=== PATIENT | female | born 1990 | race Hispanic/Latino ===

== ENCOUNTER 2017-01-20 13:43 | Emergency (ER) | payer MEDICAID, OTHER ==
[2017-01-20] MEDS ORDERED: Ammonia 2% Inhalant ONE (14:08)
[2017-01-20 15:18] VITALS: BMI 23.8
[2017-01-20] MEDS ORDERED: Lactated Ringer's 1,000 ML IV SCH (15:30)
[2017-01-20 16:56] LABS: RBC URINE 2 /hpf (0-3); URINE BILIRUBIN NEGATIVE (NEGATIVE); URINE BLOOD LARGE (NEGATIVE); URINE COLOR STRAW (YELLOW); URINE GLUCOSE (UA) NEG (Normal); URINE KETONE 20 mg/dL (NEGATIVE); URINE LEUKOCYTE ESTERASE NEG Leu/uL (Negative); URINE PROTEIN NEGATIVE (NEGATIVE); URINE UROBILINOGEN 0.2-1.0 mg/dL (0.2-1.0); WBC URINE 2 /hpf (0-5)
== END 2017-01-20 17:40 | disposition home or self-care (01) ==
LOC: MERGE 13:43 → H.EROB2 13:43
DX: O26.92 Pregnancy related conditions, unspecified, second trimester (principal); O76 Abnormality in fetal heart rate and rhythm complicating labor and delivery
CPT/HCPCS: 81003; 96360; 99283; J7120

== ENCOUNTER 2018-02-03 10:47 | Emergency (ER) | payer MEDICAID ==
[2018-02-03 10:47] VITALS: BMI 23.8
[2018-02-03 10:55] VITALS: O2SAT 100
--- NOTE | 2018-02-03 11:55 | ED PDOC ---
- ECG O2 Sat by Pulse Oximetry: 100 Disposition - Disposition
--- NOTE | 2018-02-03 12:24 | CARD ---
APPROVED REPORT Date of service: 02/03/2018 EKG Measurement Heart [id number] <Conclusion> Normal sinus rhythm Prolonged QT St changes sugestive of myocardial ischmia Abnormal ECG
--- NOTE | 2018-02-03 12:56 | ED PDOC ---
HPI: Psych/Substance Abuse Time Seen by Provider: 02/03/18 11:00 Chief Complaint (Nursing): Anxiety Chief Complaint (Provider): Anxiety History Per: Patient History/Exam Limitations: no limitations Onset/Duration Of Symptoms: Days (x2.5 weeks) Current Symptoms Are (Timing): Intermittent Episodes Additional Complaint(s): 27 y/o female with a PMHx of anxiety presenting for evaluation of anxiety. Patient states for the past 2.5 weeks shes had intermittent episodes of palpitations, chest pain, numbness to fingertips, heavy breathing, and feeling anxious. She states she initially feels anxious and the other symptoms follow. She reports on 01/17 she had pelvic pain, presented to the ED, and was diagnosed with a threatened miscarriage which worsened her panic attacks. At that time, according to paperwork, patients beta was 438 and US was inconclusive. She says she then followed up 5 days later at [facility] where they did another repeat beta, but she is uncertain of the results. According to discharge instructions her 01/22 beta was 3500. She reports no pelvic pain or vaginal bleeding at this time, but comes in today due to another anxiety attack. Patient admits to feeling anxious because she lost a baby in 03/28 and the term threatened miscarriage scared her. She denies vaginal bleeding, SI, HI, hallucinations, abdominal pain, pelvic pain, and weakness. Patient is currently without symptoms. Of note, patient denies ever taking medications for anxiety, but was diagnosed with it as a child. Patient also states she has a scheduled appointment with an OBGYN, but does not remember the name. Past Medical History Reviewed: Historical Data, Nursing Documentation, Vital Signs Vital Signs: Last Vital Signs Temp 98.1 F 02/03/18 10:54 Pulse 97 H 02/03/18 10:54 Resp 16 02/03/18 10:54 BP 128/77 02/03/18 10:54 Pulse Ox 100 02/03/18 10:54 - Medical History PMH: Anxiety Denies: Chronic Kidney Disease - Surgical History Surgical History: No Surg Hx - Family History Family History: States: No Known Family Hx - Immunization History Hx Tetanus Toxoid Vaccination: Yes Hx Influenza Vaccination: Yes Hx Pneumococcal Vaccination: Yes - Home Medications Home Medications: Ambulatory Orders Medication Instructions Recorded No Known Home Med [No Known Home 12/29/14 Med] - Allergies Allergies/Adverse Reactions: Allergies Allergy/AdvReac Type Severity Reaction Status Date / Time tr Allergy Mild RASH Uncoded 01/17/18 23:28 Review of Systems ROS Statement: Except As Marked, All Systems Reviewed And Found Negative Cardiovascular: Positive for: Chest Pain, Palpitations Respiratory: Positive for: Other (heavy breathing) Gastrointestinal: Negative for: Abdominal Pain Genitourinary Female: Negative for: Pelvic Pain Neurological: Positive for: Numbness. Negative for: Weakness Psych: Positive for: Anxiety. Negative for: Suicidal ideation (or HI) Physical Exam - Reviewed Nursing Documentation Reviewed: Yes Vital Signs Reviewed: Yes - Physical Exam Appears: Positive for: Well, Non-toxic, No Acute Distress (speaking in full sentences) Skin: Positive for: Normal Color, Warm. Negative for: Rash Eye Exam: Positive for: Normal appearance Cardiovascular/Chest: Positive for: Regular Rate, Rhythm. Negative for: Murmur Respiratory: Positive for: Normal Breath Sounds. Negative for: Respiratory Distress Gastrointestinal/Abdominal: Positive for: Normal Exam, Soft. Negative for: Tenderness Back: Positive for: Normal Inspection. Negative for: L CVA Tenderness, R CVA Tenderness, Vertebral Tenderness Extremity: Positive for: Normal ROM. Negative for: Calf Tenderness (b/l) Neurologic/Psych: Positive for: Alert, Oriented (x3), Mood/Affect (calm, cooperative, friendly). Negative for: Aphasia, Facial Droop - ECG O2 Sat by Pulse Oximetry: 100 (RA) Pulse Ox Interpretation: Normal Medical Decision Making Medical Decision Makin:22 Plan: -EKG -Crisis evaluation -Reevaluation EKG: sinus rhythm at 81 bpm, no ST-T wave changes 12:41 Patient was given outpatient psych clinic information by molding utility worker. Patient is appreciative and agrees with plan and care. Reports no symptoms during entire ED stay. Advised to return to ED immediately if symptoms return. Case discussed with Dr. Garces who agrees with plan and care. ----- Scribe Attestation: Documented by Todd Bempong, acting as a scribe for Agus Kiran PA-C. Provider Scribe Attestation: All medical record entries made by the Scribe were at my direction and personally dictated by me. I have reviewed the chart and agree that the record accurately reflects my personal performance of the history, physical exam, medical decision making, and the department course for this patient. I have also personally directed, reviewed, and agree with the discharge instructions and disposition. Disposition - Clinical Impression Clinical Impression: Anxiety - Patient ED Disposition Is Patient to be Admitted: No - Disposition Referrals: [facility] [Outside] [facility] [Outside] Disposition: Routine/Home Disposition Time: 12:41 Condition: STABLE Additional Instructions: PATRICIA BLUE, thank you for letting us take care of you today. Your provider was Evin Garces MD and you were treated for ANXIETY. The emergency medical care you received today was directed at your acute symptoms. If you were prescribed any medication, please fill it and take as directed. It may take several days for your symptoms to resolve. Return to the Emergency Department if your symptoms worsen, do not improve, or if you have any other problems. Please contact your doctor or call one of the physicians/clinics you have been referred to that are listed on the Patient Visit Information form that is included in your discharge packet. Bring any paperwork you were given at discharge with you along with any medications you are taking to your follow up visit. Our treatment cannot replace ongoing medical care by a primary care provider outside of the emergency department. Thank you for allowing the [facility] team to be part of your care today. If you had an X-Ray or CT scan: A Radiologist will review the ED reading if any change in treatment is needed we will contact you. If you had a blood, urine, or wound culture: It will take several days for the results, if any change in treatment is needed we will contact you. If you had an STI test: It will take 48 hours for the results. Please call after 1 week if you have not heard back. Instructions: Anxiety, Adult (DC) Forms: [facility] (Palestinian) Print Language: ALBANIAN
[2018-02-03 12:57] VITALS: BP 118/58; PULSE 84; RESP 18; TEMP 98
== END 2018-02-03 12:55 | disposition home or self-care (01) ==
LOC: H.ER 10:47
DX: F41.9 Anxiety disorder, unspecified (principal)

== ENCOUNTER 2018-05-17 12:29 | Emergency (ER) | payer MEDICAID ==
[2018-05-17 13:20] VITALS: BMI 24.7
[2018-05-17 14:40] LABS: SQUAMOUS EPITHIAL 5 /hpf (0-5); URINE BILIRUBIN NEGATIVE (NEGATIVE); URINE BLOOD NEGATIVE (NEGATIVE); URINE CLARITY SLIGHTY-CLOUDY (Clear); URINE COLOR YELLOW (YELLOW); URINE GLUCOSE (UA) NEG (Normal); URINE PROTEIN NEGATIVE (NEGATIVE); URINE UROBILINOGEN 0.2-1.0 mg/dL (0.2-1.0)
[2018-05-17 14:54] LABS: URINE LEUKOCYTE ESTERASE TRACE Leu/uL (Negative)
[2018-05-17] MEDS ORDERED: Lactated Ringer's 1,000 ML IV STA (15:30)
[2018-05-17 15:59] LABS: BASO % 0.4 % (0.0-2.0); EOS % 0.3 % (0.0-4.0); HEMOGLOBIN 12.4 g/dL (12.0-16.0); LYMPH # 1.2 K/uL (1.0-4.3); LYMPH % 15.5 % (20.0-40.0); MEAN CELL VOLUME 95.2 fl (81.0-99.0); MEAN CORPUSCULAR HGB CONC 33.7 g/dL (33.0-37.0); MEAN PLATELET VOLUME 9.1 fl (7.2-11.7); MONO # 0.5 K/uL (0.0-0.8); MONO % 6.7 % (0.0-10.0); NEUT # 6.1 K/uL (1.8-7.0); NEUT % 77.1 % (50.0-75.0); NRBC % 0.1 % (0.0-0.0); RBC 3.87 Mil/uL (3.80-5.20); RED CELL DISTRIBUTION WIDTH 13.3 % (11.5-14.5); WHITE BLOOD COUNT 7.9 K/uL (4.8-10.8)
[2018-05-17 16:11] LABS: ALB/GLOB RATIO 1.1 (1.0-2.1); ALBUMIN 3.7 g/dL (3.5-5.0); ALT/SGPT 24 U/L (9-52); AST/SGOT 23 U/L (14-36); BLOOD UREA NITROGEN 7 mg/dl (7-17); CALCIUM 8.6 mg/dL (8.4-10.2); GFR NON-AFRICAN AMERICAN > 60
--- NOTE | 2018-05-17 16:14 | ED PDOC ---
HPI: Chest Pain Time Seen by Provider: 05/17/18 15:07 Chief Complaint (Nursing): Chest Pain Chief Complaint (Provider): Chest Pain History Per: Patient History/Exam Limitations: no limitations Onset/Duration Of Symptoms: Intermittent Episodes (since 12/2017), Worse Since (x3 days) Current Symptoms Are (Timing): Still Present Additional Complaint(s): 27 year old female, approximately 22 weeks with pmHx of anxiety, arrives to ED with a complaint of intermittent right-sided chest pain since 12/2017 but worsen in the last 3 days. Patient states symptoms feel similar to previous anxiety episodes but also believes it was initiated when she choked on food 3 days ago. She reports associated difficulty breathing, shortness of breath on exertion, upper chest rash, watery, non-bloody diarrhea, nonbloody, nonbilious vomiting, nausea, decreased PO intake and appetite. Otherwise, she denies any fever, chills, cough, recent travel, sick contacts, leg pain or swel ling. . [employer]ER: [facility] in [place]. Past Medical History Reviewed: Historical Data, Nursing Documentation, Vital Signs Vital Signs: Last Vital Signs Temp 98.0 F 05/17/18 15:13 Pulse 94 H 05/17/18 15:13 Resp 18 05/17/18 15:13 BP 104/55 L 05/17/18 15:13 Pulse Ox 100 05/17/18 15:13 - Medical History PMH: Anxiety Denies: Chronic Kidney Disease - Surgical History Surgical History: No Surg Hx - Family History Family History: States: No Known Family Hx - Social History Current smoker - smoking cessation education provided: No Ex-Smoker (has not smoked in the last 12 months): Yes Alcohol: None Drugs: Cannabis - Immunization History Hx Tetanus Toxoid Vaccination: Yes Hx Influenza Vaccination: Yes Hx Pneumococcal Vaccination: Yes - Home Medications Home Medications: Ambulatory Orders Medication Instructions Recorded Acetaminophen [Tylenol Extra 1,000 mg PO Q6 PRN #100 tablet 05/17/18 Strength] Cyclobenzaprine [Flexeril] 5 mg PO Q8 PRN #15 tab 05/17/18 Famotidine [Pepcid] 40 mg PO DAILY PRN #10 tab 05/17/18 Ondansetron ODT [Zofran ODT] 1 odt PO Q6 PRN #30 odt 05/17/18 - Allergies Allergies/Adverse Reactions: Allergies Allergy/AdvReac Type Severity Reaction Status Date / Time tr Allergy Mild RASH Uncoded 05/17/18 15:03 Wells Criteria for PE - Wells Criteria for Pulmonary Embolism Clinical Signs and Symptoms of DVT: No P.E is #1 Diagnosis, or Equally Likely: No Heart Rate >100: No Immobilization at least 3 days;Surgery previous 4 weeks: No Previous, objectively diagnosed PE or DVT: No Hemoptysis: No Malignancy w/treatment within 6 months, or palliative: No Total Score: 0 Review of Systems ROS Statement: Except As Marked, All Systems Reviewed And Found Negative Constitutional: Negative for: Fever, Chills Cardiovascular: Positive for: Chest Pain (right-sided) Respiratory: Positive for: SOB with Exertion. Negative for: Cough Gastrointestinal: Positive for: Nausea, Vomiting (NBNB), Diarrhea (NB, watery), Other (decreased PO intake and appetite) Musculoskeletal: Negative for: Leg Pain (or swelling) Skin: Positive for: Rash (upper chest) Psych: Positive for: Anxiety Physical Exam - Reviewed Nursing Documentation Reviewed: Yes Vital Signs Reviewed: Yes - Physical Exam Appears: Positive for: In Acute Distress (painful mildly) Head Exam: Positive for: ATRAUMATIC, NORMOCEPHALIC Skin: Positive for: Warm, Dry Eye Exam: Positive for: EOMI, PERRL ENT: Positive for: Pharynx Is (clear), Other (dry mucous membrane) Neck: Positive for: Painless ROM, Supple Cardiovascular/Chest: Positive for: Regular Rate, Rhythm, Other (right anterior chest wall tenderness with petechiae). Negative for: Murmur Respiratory: Positive for: Normal Breath Sounds. Negative for: Accessory Muscle Use, Rales, Rhonchi, Wheezing, Respiratory Distress Gastrointestinal/Abdominal: Positive for: Soft, Other (gravid with uterus above umbilicus). Negative for: Mass, Guarding, Rebound Pelvic Exam: Positive for: Tender Uterus Back: Positive for: Normal Inspection. Negative for: Decreased ROM Extremity: Negative for: Pedal Edema (bilateral), Calf Tenderness (bilateral) Lymphatic: Negative for: Adenopathy Neurologic/Psych: Positive for: Alert, Oriented (x3), Mood/Affect (anxious). Negative for: Motor/Sensory Deficits - Laboratory Results Result Diagrams: 05/17/18 15:54 05/17/18 15:54 - ECG ECG: Positive for: Interpreted By Nc ECG Rhythm: Positive for: Normal QRS, Normal ST Segment, Sinus Rhythm O2 Sat by Pulse Oximetry: 100 (RA) Pulse Ox Interpretation: Normal Medical Decision Making Medical Decision Making: Initial Impression: Chest pain; Anxiety Differential diagnosis includes but not limited to: anxiety, electrolyte abnormality, dehydration, thyroid disfunction. Given symptoms started 6 months ago, currently has AGE symptoms, and has no tachycardia or respiratory distress, very unlikely that this pt has pulmonary embolism. Initial Plan: * Labs * EKG * Flexeril 10mg PO * Lactated Ringers * Tylenol 975mg PO * Zofran inj 4mg IVP * US Time: 1530 --EKG: NSR at 98 BMP. Normal QRS and ST cycle. Time: 16:35 FINDINGS: UTERUS: Single live intrauterine fetus in cephalic presentation. BPD: 5.3 cm corresponding to 22 weeks and 0 day of gestational age. HC: 18.6 cm corresponding to 21 weeks and 0 days of gestational age. AC: 15.3 cm corresponding to 20 weeks and 4 days of gestational age. FL: 4.0 cm corresponding to 22 weeks and 6 days of gestational age. Heart rate: 152 bpm. age (Ultrasound estimated): 21 weeks and 4 days Corine-gestational hemorrhage: None. Date of delivery (Ultrasound estimated) : 09/23/2018 CERVIX: Measures 5.0 cm. Long and closed. No cervical abnormality seen. RIGHT OVARY: Not visualized. LEFT OVARY: Not visualized. FREE FLUID: None. OTHER FINDINGS: None. IMPRESSION: Single live intrauterine fetus in cephalic presentation with mean gestational age of 21 weeks and 4 days. The estimated date of delivery by ultrasound is 09/23/2018. The ultrasound dates correspond with the clinical dates. Please note this is a limited OB ultrasound performed on an emergent basis. Follow-up dedicated anatomic survey is recommended. Labs demonstrate ketones in UA, otherwise no clinically significant abnormalities 1730 on reeval pt feeling better, reports her hunger resolved and is eating sandwich. Stable for dc. Scribe Attestation: Documented by Lyndsay Villatoro, acting as a scribe for Evin Garces MD. Provider Scribe Attestation: All medical record entries made by the Scribe were at my direction and personally dictated by me. I have reviewed the chart and agree that the record accurately reflects my personal performance of the history, physical exam, medical decision making, and the department course for this patient. I have also personally directed, reviewed, and agree with the discharge instructions and disposition. Disposition - Clinical Impression Clinical Impression: Anxiety, Gastroenteritis Counseled Patient/Family Regarding: Studies Performed, Diagnosis, Need For Followup, Rx Given - Disposition Referrals: [facility] [Provider Group] Disposition: Routine/Home Disposition Time: 17:00 Condition: IMPROVED Prescriptions: Acetaminophen [Tylenol Extra Strength] 1,000 mg PO Q6 PRN #100 tablet PRN Reason: FEVER OR PAIN Cyclobenzaprine [Flexeril] 5 mg PO Q8 PRN #15 tab PRN Reason: muscle spasm Famotidine [Pepcid] 40 mg PO DAILY PRN #10 tab PRN Reason: reflux Ondansetron ODT [Zofran ODT] 1 odt PO Q6 PRN #30 odt PRN Reason: Nausea/Vomiting Instructions: Anxiety, Adult (DC), Gastroenteritis (ED) Forms: [email or web address] (Lebanese)
--- NOTE | 2018-05-17 16:39 | US ---
Date of service: 05/17/2018 PROCEDURE: OB Pelvic Ultrasound HISTORY: pelvic pain LMP: 12/12/2017 COMPARISON: None available. FINDINGS: UTERUS: Single live intrauterine fetus in cephalic presentation. BPD: 5.3 cm corresponding to 22 weeks and 0 day of gestational age. HC: 18.6 cm corresponding to 21 weeks and 0 days of gestational age. AC: 15.3 cm corresponding to 20 weeks and 4 days of gestational age. FL: 4.0 cm corresponding to 22 weeks and 6 days of gestational age. Heart rate: 152 bpm. age (Ultrasound estimated): 21 weeks and 4 days Corine-gestational hemorrhage: None. Date of delivery (Ultrasound estimated) : 09/23/2018 CERVIX: Measures 5.0 cm. Long and closed. No cervical abnormality seen. RIGHT OVARY: Not visualized. LEFT OVARY: Not visualized. FREE FLUID: None. OTHER FINDINGS: None. IMPRESSION: Single live intrauterine fetus in cephalic presentation with mean gestational age of 21 weeks and 4 days. The estimated date of delivery by ultrasound is 09/23/2018. The ultrasound dates correspond with the clinical dates. Please note this is a limited OB ultrasound performed on an emergent basis. Follow-up dedicated anatomic survey is recommended.
[2018-05-17 16:41] LABS: ABG ALLEN TEST YES; ARTERIAL BLOOD GAS HCO3 23.7 mmol/L (21-28); ARTERIAL BLOOD GAS O2 SAT 100.3 % (95-98); ARTERIAL BLOOD GAS PCO2 32 mm/Hg (35-45); ARTERIAL BLOOD GAS PH 7.44 (7.35-7.45); ARTERIAL BLOOD GAS PO2 94 mm/Hg (80-100); ARTERIAL BLOOD GAS TCO2 22.7 mmol/L (22-28)
[2018-05-17] MEDS ORDERED: Dextrose 5%/Lactated Ringer's 1,000 ML IV STA (16:44)
[2018-05-17 18:17] LABS: BARBITURATES, UR NEGATIVE (NEGATIVE); BENZODIAZEPINES, UR NEGATIVE (NEGATIVE); OPIATES, UR NEGATIVE (NEGATIVE); PHENCYCLIDINE, UR NEGATIVE (NEGATIVE)
[2018-05-17 19:12] VITALS: RESP 16; TEMP 97.9; O2SAT 99
[2018-05-17 20:06] VITALS: BP 102/64; PULSE 99
--- NOTE | 2018-05-18 08:30 | OBHP ---
Datetime: 05/17/2018 14:03 IP Adm Impression: No Active Labor IP Admit Plan: Observation/Evaluation Admit Comment, IP Provider: Pt is a 27 yo F IUP @ 22 weeks based on LMP of 12/12/17. Pt state s that she started having epigastric sharp constant pain and RLQ pain, patient also has anxiety, palp itations and chest pain that started 2 days ago. Pt has had 3 previous admissions to the hospital for anxiety. Denies vaginal bleeding, contractions, LOF. Reports good movement. PNP: Scooter Arana OB hx: No complications with current , 3 previous pregnancies 2008, 2011, . 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 Lungs: clear to auscultation bilaterally, no wheezing, rales, rhonchi Abdomen: gravid LE: negative for edema A_P: Pt is a 27 yo F IUP @ 22 weeks based on LMP of 12/12/17. -Observe in OB ED -Monitor heart rate: Doppler 141 -Urinalysis- Negative, Urine drug + cannabis -Speculum exam- no vaginal bleeding, no cervical dilation -Sent to ED for medical eval Case discussed with Attending -Kayli Levin PGY-1 OB Hospitalist on-call...late entry...Pt seen with PGY1. With CP, she was cleared and sent to ER for medical eval. MAHNDO Pelvic Type - PN: Adequate Extremities - PN: Normal Abdomen - PN: Normal Back - PN: Not Done Breast - PN: Not Done Lungs - PN: Normal Heart - PN: Normal Thyroid - PN: Not Done Neurologic - PN: Normal HEENT - PN: Normal General - PN: Normal FHR - Baseline A Provider: 141 Membranes, Provider: Intact Pool Provider: Negative EGA AdmitDate IP: 22.0 Vital Signs Provider: Reviewed; Within Normal Limits IP Chief Complaint: Maternal discomfort NICHD Variability Prov Fetus A: NICHD Accel Fetus A IP Provider: FHR Category Provider Fetus A: NICHD Decel Fetus A IP Provider: None Dilatation, Provider: 0 Genitourinary Exam: Normal DTRs - PN: Not Done
--- NOTE | 2018-05-18 08:43 | OBDCSUM ---
Datetime: 05/17/2018 14:05 Discharge Comment, Provider: discharged to ER Discharge Diagnosis Prov Other: 22w chest pain
--- NOTE | 2018-05-18 08:48 | CARD ---
APPROVED REPORT Date of service: 05/17/2018 EKG Measurement Heart [id number] <Conclusion> Normal sinus rhythm Normal Electrocardiogram
== END 2018-05-17 18:50 | disposition home or self-care (01) ==
LOC: H.EROB2 12:29 → H.ER 12:29 → H.EROB 12:59 → H.EROB2 12:59 → H.ER 18:50
DX: F41.9 Anxiety disorder, unspecified (principal); K52.9 Noninfective gastroenteritis and colitis, unspecified; O26.892 Other specified pregnancy related conditions, second trimester; O99.342 Other mental disorders complicating pregnancy, second trimester; Z3A.22 22 weeks gestation of pregnancy; R07.89 Other chest pain
CPT/HCPCS: 36600; 76815; 80053; 80324; 80345; 80346; 80349; 80353; 80358; 80361; 81003; 82803; 83735; 83992; 84100; 84443; 84484; 85025; 93005; 96374; 96375; 99283; J2405; J7120

== ENCOUNTER 2018-06-14 18:02 | Emergency (ER) | payer MEDICAID ==
[2018-06-14 18:02] VITALS: BMI 24.7
[2018-06-14 18:08] VITALS: RESP 18; O2SAT 98
--- NOTE | 2018-06-14 19:57 | ED PDOC ---
HPI: Trauma/Fall - HPI Time Seen by Provider: 06/14/18 18:20 Chief Complaint (Nursing): Anxiety Chief Complaint (Provider): Anxiety History Per: Patient History/Exam Limitations: no limitations Onset/Duration Of Symptoms: Days (x2) Additional Complaint(s): 27 year old female with pmHx of anxiety, and panic attacks, arrives to ED from OB ED for an evaluation after a trip and fall yesterday. Patient is approximately 20 weeks and cleared by OB ED, however, patient feels evaluation was not sufficent enough as staff performed a doppler instead of an U/S. She reports more nausea than usual and palpitation that is associated with her typical anxiety. She denies fever, chills, cough, vomiting, or URI symptoms. Patient reports discontinuation of her Zofran as it had run out recently. PCP: Scooter Polanco Past Medical History Reviewed: Historical Data, Nursing Documentation, Vital Signs Vital Signs: Last Vital Signs Temp 97.9 F 06/14/18 18:04 Pulse 95 H 06/14/18 18:04 Resp 18 06/14/18 18:04 BP 103/79 06/14/18 18:04 Pulse Ox 98 06/14/18 18:04 - Medical History PMH: Anxiety Denies: Chronic Kidney Disease - Surgical History Surgical History: No Surg Hx - Family History Family History: States: Unknown Family Hx - Social History Current smoker - smoking cessation education provided: Yes Alcohol: None Drugs: Denies - Immunization History Hx Tetanus Toxoid Vaccination: Yes Hx Influenza Vaccination: Yes Hx Pneumococcal Vaccination: Yes - Home Medications Home Medications: Ambulatory Orders Medication Instructions Recorded Cyclobenzaprine [Flexeril] 5 mg PO Q8 PRN #15 tab 05/17/18 Famotidine [Pepcid] 40 mg PO DAILY PRN #10 tab 05/17/18 Ondansetron ODT [Zofran ODT] 1 odt PO Q6 PRN #30 odt 05/17/18 RX: Acetaminophen [Tylenol Extra 1,000 mg PO Q6 PRN #100 tablet 05/17/18 Strength] Ondansetron ODT [Zofran ODT] 4 mg PO Q6H PRN #4 odt 06/14/18 - Allergies Allergies/Adverse Reactions: Allergies Allergy/AdvReac Type Severity Reaction Status Date / Time tr Allergy Mild RASH Uncoded 06/14/18 18:27 Review of Systems ROS Statement: Except As Marked, All Systems Reviewed And Found Negative Constitutional: Negative for: Fever, Chills ENT: Negative for: Nose Discharge, Nose Congestion, Throat Pain, Throat Swelling Cardiovascular: Positive for: Palpitations Respiratory: Negative for: Cough Gastrointestinal: Positive for: Nausea. Negative for: Vomiting Psych: Positive for: Anxiety Physical Exam - Reviewed Nursing Documentation Reviewed: Yes Vital Signs Reviewed: Yes - Physical Exam Appears: Positive for: Well, Non-toxic, No Acute Distress Head Exam: Positive for: ATRAUMATIC, NORMAL INSPECTION, NORMOCEPHALIC Skin: Positive for: Normal Color Eye Exam: Positive for: Normal appearance, EOMI, PERRL ENT: Positive for: Normal ENT Inspection Neck: Positive for: Normal, Painless ROM, Supple Cardiovascular/Chest: Positive for: Regular Rate, Rhythm, Chest Non Tender Respiratory: Positive for: Normal Breath Sounds. Negative for: Respiratory Distress Gastrointestinal/Abdominal: Positive for: Normal Exam, Soft, Other (gravid uterus). Negative for: Tenderness Back: Positive for: Normal Inspection. Negative for: Vertebral Tenderness Extremity: Positive for: Normal ROM (upper/lower). Negative for: Deformity (upper/lower) Neurologic/Psych: Positive for: Alert (x3), Oriented. Negative for: Motor/Sensory Deficits - ECG O2 Sat by Pulse Oximetry: 98 (RA) Pulse Ox Interpretation: Normal Medical Decision Making Medical Decision Making: Initial Impression: Anxiety; Fall type injury Initial Plan: * EKG * Tylenol 650mg PO * Zofran 4mg PO * US OB pregn Time: 1856 --EKG: NSR at 85 BMP. Time: 2135 --US OB Findings: There is a single intrauterine gestation, cephalic presentation. The BPD measures 6.6 cm corresponds to a gestational age of 26 weeks 3 days. The AC measures 20 cm corresponds to a gestational age of 24 weeks 5 days. The HC measures 22.7 cm corresponds to a gestational age of 24 weeks 5 days. The FL measures 4.8 cm corresponds to a gestational age of 26 weeks 1 day. The mean age is 25 weeks 4 days. heart motion was observed. The heart rate is 135 beats per minute. The placenta is posterior fundal and free of the cervical os. The cervical length is 4.6 and the cervix is closed. Both ovaries are not visualized. No free fluid is seen in the pelvic cul-de-sac. IMPRESSION: Single, live, intrauterine gestation with a composite gestational age of 25 weeks 4 days. Time: 2155 --Upon provider reevaluation, patient is feeling better, less anxious, no chest pain, medically stable, and requires no further treatment in the ED at this time. Patient will be discharged home with Rx for Zofran. Counseling was provided and all questions were answered regarding diagnosis. There is agreement to discharge plan. Return if symptoms persist or worsen. Clinical Impression: Anxiety attack Scribe Attestation: Documented by Lyndsay Villatoro, acting as a scribe for Delmis Sevilla MD Provider Scribe Attestation: All medical record entries made by the Scribe were at my direction and personally dictated by me. I have reviewed the chart and agree that the record accurately reflects my personal performance of the history, physical exam, medical decision making, and the department course for this patient. I have also personally directed, reviewed, and agree with the discharge instructions and disposition. Disposition - Clinical Impression Clinical Impression: Anxiety attack - Patient ED Disposition Is Patient to be Admitted: No Counseled Patient/Family Regarding: Studies Performed, Diagnosis, Need For Followup, Rx Given - Disposition Disposition: Routine/Home Disposition Time: 21:56 Condition: IMPROVED Additional Instructions: follow up with your primary doctor/it operations manager at [facility] return to the ED with any worsening or concerning symptoms Prescriptions: Ondansetron ODT [Zofran ODT] 4 mg PO Q6H PRN #4 odt PRN Reason: Nausea/Vomiting Instructions: Anxiety, Adult (DC), Nausea and Vomiting of (DC) Forms: [employer] (Irish)
[2018-06-14 22:49] VITALS: BP 124/65; PULSE 90; TEMP 97.8
--- NOTE | 2018-06-15 06:48 | CARD ---
APPROVED REPORT Date of service: 06/14/2018 EKG Measurement Heart [id number] <Conclusion> Normal sinus rhythm Normal ECG
--- NOTE | 2018-06-15 12:54 | US ---
Date of service: 06/14/2018 PROCEDURE: OB Pelvic Ultrasound HISTORY: 27 weeks fell LMP: COMPARISON: None available. FINDINGS: UTERUS: Gestational sac: Single intrauterine fetus in cephalic presentation. Heart rate: 135 bpm. BPD: 6.6 cm corresponding to 26 weeks and 3 days of gestational age. HC: 22.7 cm corresponding to 24 weeks and 5 days of gestational age. AC 25 weeks and 4 days: 20.0 cm corresponding to 24 weeks and 5 days of gestational age. FL: 4.8 cm corresponding to 26 weeks and 1 day of gestational age. age (Ultrasound estimated): 25 weeks and 4 days Corine-gestational hemorrhage: None. Date of delivery (Ultrasound estimated) : 09/23/2018 Placenta is fundal and posterior. CERVIX: Measures 4.6 cm. Long and closed. No cervical abnormality seen. RIGHT OVARY: Not visualized. LEFT OVARY: Not visualized. FREE FLUID: None. OTHER FINDINGS: None. IMPRESSION: Single live intrauterine fetus in cephalic presentation with mean gestational age of 25 weeks and 4 days. The estimated date of delivery by ultrasound is 09/23/2018. The ultrasound dates correspond with the clinical dates. Please note this is a limited OB ultrasound performed on an emergent basis. Dedicated follow-up anatomic survey is advised. A preliminary report was provided by [employer].
== END 2018-06-14 22:07 | disposition home or self-care (01) ==
LOC: H.ER 18:02
DX: O99.342 Other mental disorders complicating pregnancy, second trimester (principal); F41.0 Panic disorder [episodic paroxysmal anxiety]; O99.332 Smoking (tobacco) complicating pregnancy, second trimester; F17.200 Nicotine dependence, unspecified, uncomplicated; Z3A.27 27 weeks gestation of pregnancy; W01.0XXA Fall on same level from slipping, tripping and stumbling without subsequent striking against object, initial encounter

== ENCOUNTER → 2018-06-14 | Emergency (ER) | payer MEDICAID ==
[2018-06-14 18:27] VITALS: BMI 24.5
[2018-06-14 23:27] VITALS: BP 109/57; PULSE 87; RESP 18; TEMP 97.9; O2SAT 100
== END | disposition home or self-care (01) ==
LOC: H.EROB2 16:30
DX: O26.92 Pregnancy related conditions, unspecified, second trimester (principal); R10.2 Pelvic and perineal pain; O99.342 Other mental disorders complicating pregnancy, second trimester; F41.9 Anxiety disorder, unspecified; Z04.3 Encounter for examination and observation following other accident

== ENCOUNTER 2018-07-17 17:06 | Emergency (ER) | payer MEDICAID, OTHER ==
[2018-07-17 17:06] VITALS: BMI 24.7
[2018-07-17] MEDS ORDERED: Lactated Ringer's 1,000 ML IV STA (17:38)
[2018-07-17 18:12] LABS: BASO % 0.2 % (0.0-2.0); EOS % 0.2 % (0.0-4.0); HEMOGLOBIN 13.6 g/dL (12.0-16.0); LYMPH # 1.4 K/uL (1.0-4.3); LYMPH % 19.2 % (20.0-40.0); MEAN CELL VOLUME 94.8 fl (81.0-99.0); MEAN CORPUSCULAR HEMOGLOBIN 31.5 pg (27.0-31.0); MEAN CORPUSCULAR HGB CONC 33.3 g/dL (33.0-37.0); MEAN PLATELET VOLUME 9.2 fl (7.2-11.7); MONO # 0.4 K/uL (0.0-0.8); NEUT # 5.6 K/uL (1.8-7.0); NEUT % 74.4 % (50.0-75.0); RBC 4.31 Mil/uL (3.80-5.20); RED CELL DISTRIBUTION WIDTH 12.6 % (11.5-14.5); WHITE BLOOD COUNT 7.5 K/uL (4.8-10.8)
[2018-07-17 18:17] LABS: SQUAMOUS EPITHIAL 7 /hpf (0-5); URINE AMORPHOUS SEDIMENT RARE /ul (<OCC); URINE BACTERIA RARE (<OCC); URINE BILIRUBIN NEGATIVE (NEGATIVE); URINE BLOOD NEGATIVE (NEGATIVE); URINE CLARITY CLOUDY (Clear); URINE COLOR YELLOW (YELLOW); URINE GLUCOSE (UA) NEG (NEGATIVE); URINE LEUKOCYTE ESTERASE NEGATIVE Leu/uL (Negative); URINE PROTEIN NEGATIVE (NEGATIVE)
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
[2018-07-17 18:26] LABS: ALBUMIN 3.9 g/dL (3.5-5.0); ALT/SGPT 25 U/L (9-52); AST/SGOT 21 U/L (14-36); BLOOD UREA NITROGEN 7 mg/dl (7-17); GFR NON-AFRICAN AMERICAN > 60; LIPASE 61 U/L (23-300)
[2018-07-17 18:37] LABS: B-TYPE NATRIURETIC PEPTIDE 199 pg/ml (0-450)
[2018-07-17 20:13] VITALS: BP 118/60; PULSE 72; RESP 18; TEMP 98.4; O2SAT 99
--- NOTE | 2018-07-18 09:13 | US ---
Date of service: 07/17/2018 HISTORY: RUQ pain COMPARISON: None. TECHNIQUE: Grayscale imaging was performed. FINDINGS: LIVER: Measures 14.2 cm in length. Normal echogenicity of the liver parenchyma. No mass. No intrahepatic bile duct dilatation. GALLBLADDER: Unremarkable. No gallstones. COMMON BILE DUCT: Measures 3.0 mm. No stones. No dilatation. PANCREAS: Unremarkable as visualized. No mass. No ductal dilatation. RIGHT KIDNEY: Measures 11.2 cm in length. Normal echogenicity. No calculus, mass, or hydronephrosis. AORTA: No aneurysmal dilatation. IVC: Unremarkable. OTHER FINDINGS: None . IMPRESSION: No cholelithiasis or biliary dilatation. A preliminary report was provided by [employer].
--- NOTE | 2018-07-18 12:22 | US ---
Date of service: 07/17/2018 PROCEDURE: Limited ultrasound HISTORY: lower abd cramp 30 weeks preg COMPARISON: 05/17/2018 and 06/14/2018. TECHNIQUE: Standard protocol for this study/examination. FINDINGS: Cephalic presentation. Fundal/posterior placenta. No evidence of abruption or previa Gestational age derived from LMP 31 weeks. EYAL 09/18/2018. Gestational age derived from the following biometric parameters 30 weeks 5 days. EYAL 09/20/2018 Biparietal diameter 7.85 cm Head circumference 27.67 cm Abdominal circumference 25.73 cm Femur length 6.02 cm Estimated weight 1588 g Calculated cardiac rate 151 beats per min. Closed cervix measuring 4.04 cm IMPRESSION: Thirty weeks 5 days live intrauterine gestation. Adequate interval progression compared to the prior study. Gestational concordance documented.
--- NOTE | 2018-07-18 16:41 | CARD ---
APPROVED REPORT Date of service: 07/17/2018 EKG Measurement Heart [id number] <Conclusion> Normal sinus rhythm Normal Electrocardiogram
== END 2018-07-17 20:13 | disposition home or self-care (01) ==
LOC: H.ER 17:06
DX: R07.89 Other chest pain (principal); Z33.1 Pregnant state, incidental
CPT/HCPCS: 76705; 76815; 80053; 81003; 83690; 83735; 83880; 84100; 84484; 85025; 87086; 93005; 96374; 99284; J7120

== ENCOUNTER 2018-07-20 03:03 | Emergency (ER) | payer OTHER ==
[2018-07-20 03:03] VITALS: BMI 24.7
--- NOTE | 2018-07-20 04:12 | ED PDOC ---
HPI: General Adult Time Seen by Provider: 07/20/18 03:15 Chief Complaint (Nursing): GI Problem Chief Complaint (Provider): indigestion History Per: Patient History/Exam Limitations: no limitations Onset/Duration Of Symptoms: Hrs (1.5) Current Symptoms Are (Timing): Better Additional Complaint(s): 28 y/o female history of anxiety, approximately 30 weeks gestation, presents for evaluation of indigestion x 1.5 hours. Patient describes sensation as "burning liquid moving in chest" and traveling up to throat. Patient states this caused her to become anxious and then she started having a panic attack; with tremors, lock jaw, dizziness and palpitations. Patient states she took a bath which did not help so she decided to come to ED and reports symptoms have now resolved except for indigestion. Denies fever, chest pain, shortness of breath, abdominal pain, vaginal bleeding/discharge. Patient states she was here 2 days ago for same and had full workup; states she was unable to crop picker her indigestion prescription. Patient states she thinks panic attacks have been more frequent lately due to a combination of recent anniversary of the of her son and her being . Past Medical History Reviewed: Historical Data, Nursing Documentation, Vital Signs Vital Signs: Last Vital Signs Temp 98.3 F 07/20/18 03:14 Pulse 104 H 07/20/18 03:14 Resp 19 07/20/18 03:14 BP 119/89 07/20/18 03:14 Pulse Ox 98 07/20/18 03:14 - Medical History PMH: Anxiety Denies: Chronic Kidney Disease - Family History Family History: States: Unknown Family Hx - Immunization History Hx Tetanus Toxoid Vaccination: Yes Hx Influenza Vaccination: Yes Hx Pneumococcal Vaccination: Yes - Home Medications Home Medications: Ambulatory Orders Medication Instructions Recorded Acetaminophen [Tylenol Extra 1,000 mg PO Q6 PRN #100 tablet 05/17/18 Strength] Cyclobenzaprine [Flexeril] 5 mg PO Q8 PRN #15 tab 05/17/18 Famotidine [Pepcid] 40 mg PO DAILY PRN #10 tab 05/17/18 Ondansetron ODT [Zofran ODT] 1 odt PO Q6 PRN #30 odt 05/17/18 Ondansetron ODT [Zofran ODT] 4 mg PO Q6H PRN #4 odt 06/14/18 Acetaminophen [Tylenol Extra 1,000 mg PO Q6 PRN #100 tablet 07/17/18 Strength] Cyclobenzaprine [Flexeril] 5 mg PO Q8 PRN #15 tab 07/17/18 Famotidine [Pepcid] 40 mg PO DAILY PRN #30 tab 07/17/18 - Allergies Allergies/Adverse Reactions: Allergies Allergy/AdvReac Type Severity Reaction Status Date / Time tr Allergy Mild RASH Uncoded 07/20/18 03:16 Review of Systems ROS Statement: Except As Marked, All Systems Reviewed And Found Negative Physical Exam - Reviewed Nursing Documentation Reviewed: Yes Vital Signs Reviewed: Yes - Physical Exam Appears: Positive for: Well, Non-toxic, Uncomfortable (anxious) Head Exam: Positive for: ATRAUMATIC, NORMAL INSPECTION, NORMOCEPHALIC Skin: Positive for: Normal Color Eye Exam: Positive for: Normal appearance ENT: Positive for: Normal ENT Inspection Cardiovascular/Chest: Positive for: Regular Rate, Rhythm Respiratory: Positive for: Normal Breath Sounds Gastrointestinal/Abdominal: Positive for: Normal Exam Back: Positive for: Normal Inspection Extremity: Positive for: Normal ROM Neurologic/Psych: Positive for: Alert, Oriented (x3) - ECG ECG: Positive for: Viewed By Me (reivewed by ED attending) ECG Rhythm: Positive for: Sinus Rhythm O2 Sat by Pulse Oximetry: 98 Pulse Ox Interpretation: Normal - Progress ED Course And Treament: -ekg -pepcid On re-eval, patient reports some improvement of symptoms Patient educated on findings, discharged with instructions to crop picker prescription previously written Advised diet/lifestyle modification Follow up retail marketing coordinator within 2-3 days Return precautions given Disposition - Clinical Impression Clinical Impression: Anxiety attack, Gastroesophageal reflux in - Patient ED Disposition Is Patient to be Admitted: No Counseled Patient/Family Regarding: Studies Performed, Diagnosis, Need For Followup - Disposition Disposition: Routine/Home Disposition Time: 05:00 Condition: IMPROVED Instructions: Anxiety, Adult (DC), Acid Reflux (Gastroesophageal Reflux Disease) in Adults Forms: [employer] (Pashto)
[2018-07-20 06:33] VITALS: BP 124/90; PULSE 95; RESP 18; TEMP 98.6; O2SAT 99
--- NOTE | 2018-07-20 06:37 | CARD ---
APPROVED REPORT Date of service: 07/20/2018 EKG Measurement Heart [id number] <Conclusion> Normal sinus rhythm Normal ECG
== END 2018-07-20 05:35 | disposition home or self-care (01) ==
LOC: H.ER 03:03
DX: O99.613 Diseases of the digestive system complicating pregnancy, third trimester (principal); F41.0 Panic disorder [episodic paroxysmal anxiety]; Z3A.30 30 weeks gestation of pregnancy; K21.9 Gastro-esophageal reflux disease without esophagitis

== ENCOUNTER 2018-07-28 03:54 | Emergency (ER) | payer OTHER ==
[2018-07-28 03:54] VITALS: BMI 24.7
[2018-07-28 04:18] VITALS: BP 121/81; PULSE 96; RESP 17; TEMP 98.6; O2SAT 98
--- NOTE | 2018-07-28 05:13 | ED PDOC ---
HPI: General Adult Time Seen by Provider: 07/28/18 04:18 Chief Complaint (Nursing): Medical Clearance Chief Complaint (Provider): Medical Clearance History Per: Patient History/Exam Limitations: no limitations Onset/Duration Of Symptoms: Hrs (x2) Additional Complaint(s): 28 y/o female who is 32 weeks presents to the ED with concerns of her hands turning white, onset about x2 hours prior to arrival. Patient first noticed symptoms around 03:00. Patient states that while showering she saw her palm turn blue and since getting out she feels like there is a splotchy rash to the back of her hands. Patient was recently diagnosed with GERD with . She reports worsening symptoms tonight. Patient has normal workup otherwise. Denies sick contacts, shortness of breath, palpitations, or rash anywhere else. Patient states she is allergic to mangoes; denies any recent con tact. Past Medical History Reviewed: Historical Data, Nursing Documentation, Vital Signs Vital Signs: Last Vital Signs Temp 98.6 F 07/28/18 04:02 Pulse 96 H 07/28/18 04:02 Resp 17 07/28/18 04:02 BP 121/81 07/28/18 04:02 Pulse Ox 98 07/28/18 04:02 - Medical History PMH: Anxiety Denies: Chronic Kidney Disease - Family History Family History: States: Unknown Family Hx - Immunization History Hx Tetanus Toxoid Vaccination: Yes Hx Influenza Vaccination: Yes Hx Pneumococcal Vaccination: Yes - Home Medications Home Medications: Ambulatory Orders Medication Instructions Recorded Cyclobenzaprine [Flexeril] 5 mg PO Q8 PRN #15 tab 05/17/18 Famotidine [Pepcid] 40 mg PO DAILY PRN #10 tab 05/17/18 Ondansetron ODT [Zofran ODT] 1 odt PO Q6 PRN #30 odt 05/17/18 RX: Acetaminophen [Tylenol Extra 1,000 mg PO Q6 PRN #100 tablet 05/17/18 Strength] Ondansetron ODT [Zofran ODT] 4 mg PO Q6H PRN #4 odt 06/14/18 Cyclobenzaprine [Flexeril] 5 mg PO Q8 PRN #15 tab 07/17/18 Famotidine [Pepcid] 40 mg PO DAILY PRN #30 tab 07/17/18 RX: Acetaminophen [Tylenol Extra 1,000 mg PO Q6 PRN #100 tablet 07/17/18 Strength] - Allergies Allergies/Adverse Reactions: Allergies Allergy/AdvReac Type Severity Reaction Status Date / Time tr Allergy Mild RASH Uncoded 07/20/18 03:16 Review of Systems ROS Statement: Except As Marked, All Systems Reviewed And Found Negative Cardiovascular: Negative for: Palpitations Respiratory: Negative for: Shortness of Breath Skin: Positive for: Rash (back of hands), Other (discoloration of palms) Physical Exam - Reviewed Nursing Documentation Reviewed: Yes Vital Signs Reviewed: Yes - Physical Exam Appears: Positive for: Well, Non-toxic, No Acute Distress Head Exam: Positive for: ATRAUMATIC, NORMOCEPHALIC Skin: Positive for: Rash (mild erythema to the dorsal hand bilaterally) Eye Exam: Positive for: EOMI, Normal appearance, PERRL Neck: Positive for: Normal, Painless ROM Cardiovascular/Chest: Positive for: Regular Rate, Rhythm. Negative for: Murmur Respiratory: Positive for: Normal Breath Sounds. Negative for: Respiratory Distress Gastrointestinal/Abdominal: Positive for: Other (Gravid past umbilicus ) Extremity: Positive for: Normal ROM. Negative for: Pedal Edema, Deformity Neurologic/Psych: Positive for: Alert, Oriented. Negative for: Motor/Sensory Deficits - Laboratory Results Result Diagrams: 07/28/18 04:58 07/28/18 04:58 - ECG O2 Sat by Pulse Oximetry: 98 (RA) Pulse Ox Interpretation: Normal Medical Decision Making Medical Decision Making: Time: 04:18 Initial Impression: Rash workup and noted paleness to palms. Possible vascular deficieny with Initial Plan: * Labs * EKG * JAYESH shows 3 visits in last 2 weeks all in the middle of the night with varying complaints with negative workups * Reassess * 0630 Labs show UTI and hypokalemia. Pt given oral potassium and Macrobid in the ED. Pt to follow up with primary medical doctor in 3 to 5 days and will follow up with insecticide supervisor as previously scheduled. Return parameters as discussed. Scribe Attestation: Documented by Gonzalez Coe acting as a scribe for Shirley Prince MD. Provider Scribe Attestation: All medical record entries made by the Scribe were at my direction and personally dictated by me. I have reviewed the chart and agree that the record accurately reflects my personal performance of the history, physical exam, medical decision making, and the department course for this patient. I have also personally directed, reviewed, and agree with the discharge instructions and disposition. Disposition - Clinical Impression Clinical Impression: Urinary tract infection - Disposition Disposition: Routine/Home Disposition Time: 06:30 Condition: IMPROVED Instructions: General (DC), Urinary Tract Infection, Adult (DC) Forms: [employer] (Greenlandic)
[2018-07-28 05:14] LABS: BASO % 0.2 % (0.0-2.0); EOS % 0.5 % (0.0-4.0); HEMOGLOBIN 11.9 g/dL (12.0-16.0); LYMPH # 2.2 K/uL (1.0-4.3); MEAN CELL VOLUME 91.9 fl (81.0-99.0); MEAN CORPUSCULAR HEMOGLOBIN 31.9 pg (27.0-31.0); MEAN CORPUSCULAR HGB CONC 34.7 g/dL (33.0-37.0); MEAN PLATELET VOLUME 9.5 fl (7.2-11.7); MONO # 0.6 K/uL (0.0-0.8); NEUT # 6.1 K/uL (1.8-7.0); NEUT % 67.3 % (50.0-75.0); RBC 3.75 Mil/uL (3.80-5.20); RED CELL DISTRIBUTION WIDTH 12.6 % (11.5-14.5)
[2018-07-28 05:16] LABS: SQUAMOUS EPITHIAL 3 /hpf (0-5); URINE BACTERIA OCC (<OCC); URINE BILIRUBIN NEGATIVE (NEGATIVE); URINE BLOOD NEGATIVE (NEGATIVE); URINE CLARITY SLIGHTY-CLOUDY (Clear); URINE COLOR STRAW (YELLOW); URINE GLUCOSE (UA) NEG (NEGATIVE); URINE LEUKOCYTE ESTERASE LARGE Leu/uL (Negative); URINE PROTEIN NEGATIVE (NEGATIVE); URINE UROBILINOGEN 0.2-1.0 mg/dL (0.2-1.0)
[2018-07-28 05:21] LABS: PARTIAL THROMBOPLASTIN TIME 31.2 Seconds (25.6-37.1)
[2018-07-28 05:35] LABS: BLOOD UREA NITROGEN 3 mg/dl (7-17); CALCIUM 8.5 mg/dL (8.4-10.2); GFR NON-AFRICAN AMERICAN > 60
[2018-07-28] MEDS ORDERED: Potassium Chloride 20 mEq ER Tab PO ONE (06:35)
--- NOTE | 2018-07-28 07:54 | CARD ---
APPROVED REPORT Date of service: 07/28/2018 EKG Measurement Heart [id number] <Conclusion> Normal sinus rhythm Normal ECG
== END 2018-07-28 06:55 | disposition home or self-care (01) ==
LOC: H.ER 03:54
DX: O23.40 Unspecified infection of urinary tract in pregnancy, unspecified trimester (principal); Z3A.32 32 weeks gestation of pregnancy; K21.9 Gastro-esophageal reflux disease without esophagitis; F41.9 Anxiety disorder, unspecified; E87.6 Hypokalemia; L81.9 Disorder of pigmentation, unspecified

== ENCOUNTER 2018-08-01 01:17 | Emergency (ER) | payer OTHER ==
[2018-08-01 01:17] VITALS: BMI 24.7
[2018-08-01 01:46] VITALS: BP 115/74; PULSE 101; RESP 17; TEMP 98.5; O2SAT 99
--- NOTE | 2018-08-01 02:13 | ED PDOC ---
HPI: Skin/Bite Injury Time Seen by Provider: 08/01/18 01:45 Chief Complaint (Nursing): Abnormal Skin Integrity Chief Complaint (Provider): Rash History Per: Patient History/Exam Limitations: no limitations Onset/Duration Of Symptoms: Days (one) Current Symptoms Are (Timing): Still Present Additional Complaint(s): Pt, who is 30+ weeks , presents to the ED complaining of one day onset of a erthematous papular facial rash; Pt denies known allergies to any medications, but does indicate an anaphalatic allergy to mangoes; pt was at her nephew's birthday libertarian yesterday prior to the onset of the rash, but indicates no known exposures; pt denies nausea vomiting and diarhhea Past Medical History Reviewed: Historical Data, Nursing Documentation, Vital Signs Vital Signs: Last Vital Signs Temp 98.5 F 08/01/18 01:44 Pulse 101 H 08/01/18 01:44 Resp 17 08/01/18 01:44 BP 115/74 08/01/18 01:44 Pulse Ox 99 08/01/18 01:44 - Medical History PMH: Anxiety Denies: Chronic Kidney Disease - Family History Family History: States: Unknown Family Hx - Immunization History Hx Tetanus Toxoid Vaccination: Yes Hx Influenza Vaccination: Yes Hx Pneumococcal Vaccination: Yes - Home Medications Home Medications: Ambulatory Orders Medication Instructions Recorded Acetaminophen [Tylenol Extra 1,000 mg PO Q6 PRN #100 tablet 05/17/18 Strength] Cyclobenzaprine [Flexeril] 5 mg PO Q8 PRN #15 tab 05/17/18 Famotidine [Pepcid] 40 mg PO DAILY PRN #10 tab 05/17/18 Ondansetron ODT [Zofran ODT] 1 odt PO Q6 PRN #30 odt 05/17/18 Ondansetron ODT [Zofran ODT] 4 mg PO Q6H PRN #4 odt 06/14/18 Acetaminophen [Tylenol Extra 1,000 mg PO Q6 PRN #100 tablet 07/17/18 Strength] Cyclobenzaprine [Flexeril] 5 mg PO Q8 PRN #15 tab 07/17/18 Famotidine [Pepcid] 40 mg PO DAILY PRN #30 tab 07/17/18 Nitrofurantoin Macrocrystals 100 mg PO BID #10 cap 07/28/18 [Macrobid] Hydrocortisone 0.5% CREAM 1 gm EXT DAILY #30 gr 08/01/18 [Cortizone 0.5% CREAM] - Allergies Allergies/Adverse Reactions: Allergies Allergy/AdvReac Type Severity Reaction Status Date / Time tr Allergy Mild RASH Uncoded 08/01/18 01:46 Review of Systems Skin: Positive for: Rash Physical Exam - Reviewed Nursing Documentation Reviewed: Yes Vital Signs Reviewed: Yes - Physical Exam Head Exam: Positive for: ATRAUMATIC, NORMAL INSPECTION Skin: Positive for: Rash (On evaluation, the patient appears well, no airway swe lling, pulse ox normal, rash resolving, hemodynamically stable, patient asymptomatic and appears safe and appropriate for discharge and outpatient f/u) Eye Exam: Positive for: Normal appearance ENT: Positive for: Normal ENT Inspection Neck: Positive for: Normal Cardiovascular/Chest: Positive for: Regular Rate, Rhythm Respiratory: Positive for: Normal Breath Sounds - ECG O2 Sat by Pulse Oximetry: 99 Disposition - Clinical Impression Clinical Impression: Rash and other nonspecific skin eruption - Patient ED Disposition Is Patient to be Admitted: No Doctor Will See Patient In The: Office Counseled Patient/Family Regarding: Diagnosis, Need For Followup - Disposition Referrals: [facility] [Outside] [facility]Outside] Dexter Mota MD [Non-Staff] - Álvaro Massey DO [Doctor Osteopathy] - Aries Alatorre MD [Medical Doctor] - Disposition: Routine/Home Disposition Time: 02:16 Condition: STABLE Prescriptions: Hydrocortisone 0.5% CREAM [Cortizone 0.5% CREAM] 1 gm EXT DAILY #30 gr Instructions: Skin Rash (DC), Topical Corticosteroid Medicines
== END 2018-08-01 04:05 | disposition home or self-care (01) ==
LOC: H.ER 01:17
DX: R21 Rash and other nonspecific skin eruption (principal)

== ENCOUNTER 2018-09-04 02:10 | Emergency (ER) | payer OTHER ==
[2018-09-04 02:10] VITALS: BMI 24.7
[2018-09-04] MEDS ORDERED: Alum-Mag Hydrox-Simethicone Susp (30 mL) PO STA (03:21)
[2018-09-04] MEDS ORDERED: Alum-Mag Hydrox-Simethicone Susp (30 mL) ONE (03:24)
--- NOTE | 2018-09-04 04:06 | ED PDOC ---
HPI: Chest Pain Time Seen by Provider: 09/04/18 03:06 Chief Complaint (Nursing): Chest Pain Chief Complaint (Provider): Chest Pain History Per: Patient History/Exam Limitations: no limitations Onset/Duration Of Symptoms: Days (x 1) Current Symptoms Are (Timing): Still Present Quality: Other (discomfort) Additional Complaint(s): 28 year old female with a history of reflux and anxiety presents to the ED with chest discomfort, onset today. Patient is with an EGA of 37 weeks. She reports that she ran out of Pepcid a week ago today and began to feel chest discomfort that radiates to her throat which she describes as an acid like sensation. Initially, she reported no abdominal pain. However, since sitting in the ED she has developed abdominal pain radiating to her back. Lefty fever, vaginal bleeding or discharge and any other complaints. PMD: Dr. Mandie Polk Past Medical History Reviewed: Historical Data, Nursing Documentation, Vital Signs Vital Signs: Last Vital Signs Temp 98.7 F 09/04/18 02:33 Pulse 88 09/04/18 02:33 Resp 16 09/04/18 02:33 BP 116/69 09/04/18 02:33 Pulse Ox 100 09/04/18 02:33 - Medical History PMH: Anxiety, Fractures (Right arm) Denies: Chronic Kidney Disease - Surgical History Surgical History: No Surg Hx - Family History Family History: States: Unknown Family Hx - Immunization History Hx Tetanus Toxoid Vaccination: Yes Hx Influenza Vaccination: Yes Hx Pneumococcal Vaccination: Yes - Home Medications Home Medications: Ambulatory Orders Medication Instructions Recorded Acetaminophen [Tylenol Extra 1,000 mg PO Q6 PRN #100 tablet 05/17/18 Strength] Cyclobenzaprine [Flexeril] 5 mg PO Q8 PRN #15 tab 05/17/18 Famotidine [Pepcid] 40 mg PO DAILY PRN #10 tab 05/17/18 Ondansetron ODT [Zofran ODT] 1 odt PO Q6 PRN #30 odt 05/17/18 Ondansetron ODT [Zofran ODT] 4 mg PO Q6H PRN #4 odt 06/14/18 Acetaminophen [Tylenol Extra 1,000 mg PO Q6 PRN #100 tablet 07/17/18 Strength] Cyclobenzaprine [Flexeril] 5 mg PO Q8 PRN #15 tab 07/17/18 Famotidine [Pepcid] 40 mg PO DAILY PRN #30 tab 07/17/18 Nitrofurantoin Macrocrystals 100 mg PO BID #10 cap 07/28/18 [Macrobid] Hydrocortisone 0.5% CREAM 1 gm EXT DAILY #30 gr 08/01/18 [Cortizone 0.5% CREAM] Famotidine [Pepcid] 20 mg PO Q12 #28 tab 09/04/18 - Allergies Allergies/Adverse Reactions: Allergies Allergy/AdvReac Type Severity Reaction Status Date / Time tr Allergy Mild RASH Uncoded 08/01/18 01:46 Review of Systems ROS Statement: Except As Marked, All Systems Reviewed And Found Negative Constitutional: Negative for: Fever, Chills Cardiovascular: Positive for: Chest Pain (discomfort; radiates to throat) Gastrointestinal: Positive for: Abdominal Pain (radiating to back) Genitourinary Female: Negative for: Vaginal Discharge, Vaginal Bleeding Physical Exam - Reviewed Nursing Documentation Reviewed: Yes Vital Signs Reviewed: Yes - Physical Exam Appears: Positive for: Non-toxic, No Acute Distress Head Exam: Positive for: ATRAUMATIC, NORMAL INSPECTION, NORMOCEPHALIC Skin: Positive for: Normal Color, Warm, Dry Eye Exam: Positive for: EOMI, Normal appearance, PERRL Neck: Positive for: Normal, Painless ROM, Supple Cardiovascular/Chest: Positive for: Regular Rate, Rhythm. Negative for: Murmur Respiratory: Positive for: Normal Breath Sounds. Negative for: Respiratory Distress Gastrointestinal/Abdominal: Positive for: Normal Exam, Soft (gravid). Negative for: Tenderness, Mass, Guarding Extremity: Positive for: Normal ROM (x 4). Negative for: Deformity Neurologic/Psych: Positive for: Alert, Oriented (x 3). Negative for: Motor/Sensory Deficits - ECG O2 Sat by Pulse Oximetry: 100 (RA) Pulse Ox Interpretation: Normal Medical Decision Making Medical Decision Makin:21 Impression: 28 year old female with reflux Initial Plan: --EKG --Maalox 30 ml PO --Pepcid 40 mg PO 05:20 Patient reports marked improvemet in symptoms. She is stavle for discharge with a diagnosis of GERD. Patient will be transferred to the OB ED for further evaluation of abdominal pain in . Scribe Attestation: Documented by Hyacinth Escalera acting as a scribe for Ulises Wing MD Provider Scribe Attestation: All medical record entries made by the Scribe were at my direction and personally dictated by me. I have reviewed the chart and agree that the record accurately reflects my personal performance of the history, physical exam, medical decision making, and the department course for this patient. I have also personally directed, reviewed, and agree with the discharge instructions and disposition. Disposition - Clinical Impression Clinical Impression: GERD (gastroesophageal reflux disease) - Patient ED Disposition Is Patient to be Admitted: No - Disposition Disposition Time: 05:20 Condition: STABLE Prescriptions: Famotidine [Pepcid] 20 mg PO Q12 #28 tab Instructions: Acid Reflux (Gastroesophageal Reflux Disease) During Forms: [employer] (Maori)
[2018-09-04 05:25] VITALS: BP 111/64; PULSE 89; RESP 18; TEMP 98.6
[2018-09-04 05:27] VITALS: O2SAT 100
--- NOTE | 2018-09-04 10:05 | CARD ---
APPROVED REPORT Date of service: 09/04/2018 EKG Measurement Heart [id number] <Conclusion> Sinus tachycardia Otherwise normal ECG
== END 2018-09-04 05:39 | disposition home or self-care (01) ==
LOC: H.ER 02:10 → H.EROB2 05:39
DX: O26.93 Pregnancy related conditions, unspecified, third trimester (principal); K21.9 Gastro-esophageal reflux disease without esophagitis; O99.613 Diseases of the digestive system complicating pregnancy, third trimester; R07.89 Other chest pain; Z3A.37 37 weeks gestation of pregnancy

== ENCOUNTER 2018-09-04 05:45 | Emergency (ER) | payer OTHER ==
[2018-09-04 02:10] VITALS: BMI 24.7
--- NOTE | 2018-09-04 07:12 | OBHP ---
Datetime: 09/04/2018 06:51 IP Adm Impression: Term, intrauterine IP Admit Plan: Observation/Evaluation; Discharge home Admit Comment, IP Provider: 28 yo at 37+5 wks w/ EDC 09/20/2018 sent to [facility] from [facility] . Pt was seen for rash on her face and chest pain/ severe reflux. Pt was given pepcid and rx'd famo todine. Pt reports that she has lower back pain and has been feeling cramps ths am. Pt denies LOF a nd VB. Pt reports FM. Pt receives PN care at [facility]. PMH: h/o anxiety and heart murmur Meds: PNVs Ob hx: x 3, TOP x 2, 1 baby in 05/2018 at 8 wks old w/ hypoplastic left heart syndrome, s /p 3 surgeries All: Mang[employer] hx: h/o reg periods, denies STDs and abn paps Soc hx: pt denies tobacco, alcohol and illicit drug use Fam hx: MGF- prostate ca, MGM cancer?, M- cancer? PE: AFVSS Gen'l: Pt appears comfortable sitting up in bed Heart: RRR Chest: Lungs CTA b/l Abd: soft, NT, gravid Ext: NT, no edema VE: 2/70/-1 at 0645 EFM: as above [place]: as above A/P: 28 yo at 37+5 wks sent from ED, seen for reflux, now w/ cramps and lower bacl pain. NST reactive. Offered to recheck her in a few hours. Pt preferred to go home. Pt given labor precautions. Pt has a f/u appoint at [facility] on 09/08/2018. Extremities - PN: Normal Abdomen - PN: Normal Back - PN: Normal Lungs - PN: Normal Heart - PN: Normal Neurologic - PN: Normal General - PN: Normal FHR - Baseline A Provider: 110's Membranes, Provider: Intact Contraction Comments Provider: Q2 EGA AdmitDate IP: 37.5 Vital Signs Provider: Reviewed IP Chief Complaint: Uterine contractions; Maternal discomfort NICHD Variability Prov Fetus A: Moderate 6-25bpm NICHD Accel Fetus A IP Provider: [id number] FHR Category Provider Fetus A: Category I NICHD Decel Fetus A IP Provider: None Dilatation, Provider: 2 Effacement, Provider: 70 Station, Provider: -1 Genitourinary Exam: Normal
--- NOTE | 2018-09-04 07:12 | OBDCSUM ---
Datetime: 09/04/2018 06:53 Discharged to, Provider: Home Follow up at, Provider: Scooter Manjarrez Disch Instr Activity: Normal activity Disch Instr Diet: Regular Discharge Diagnosis, Provider: Sherly Labor - Undelivered Discharge Time: 09/04/2018 06:54 Follow up in weeks, Provider: 09/08/2018 @ 11:00 am as scheduled Disch Referrals: None
[2018-09-04 11:12] VITALS: BP 114/74; PULSE 103; TEMP 99.3; O2SAT 99
== END 2018-09-04 07:00 | disposition home or self-care (01) ==
LOC: H.EROB2 05:45
DX: O26.93 Pregnancy related conditions, unspecified, third trimester (principal); R10.2 Pelvic and perineal pain; M54.5 Low back pain; R21 Rash and other nonspecific skin eruption; R07.9 Chest pain, unspecified; Z3A.37 37 weeks gestation of pregnancy

== ENCOUNTER 2018-09-06 16:14 | Emergency (ER) | payer OTHER ==
--- NOTE | 2018-09-06 17:15 | OBHP ---
Datetime: 09/06/2018 17:08 IP Adm Impression: Term, intrauterine ; No Active Labor; Intact Membranes IP Admit Plan: Observation/Evaluation Admit Comment, IP Provider: 28 yo at 38wks w/ EDC 09/20/2018 she came c/o diarhea since yest erday. Started out as watery and no soft. Decreased FM but now feels +FM. Occ CTX irregular. Pt d enies LOF and VB. Pt receives PN care at [facility]. she did not bring records - denies complications antepartum PMH: h/o anxiety and heart murmur Meds: PNVs Ob hx: x 3, TOP x 2, 1 baby in 05/2018 at 8 wks old w/ hypoplastic left heart syndrome, s /p 3 surgeries All: [employer] hx: h/o reg periods, denies STDs and abn paps Soc hx: pt denies tobacco, alcohol and illicit drug use Fam hx: MGF- prostate ca, MGM cancer?, M- cancer? PE: Gen'l: Pt appears comfortable sitting up in bed Abd: soft, NT, gravid Ext: NT, no edema 28 yo at 38 wks Gastroenteritis PLAN: po fluids - advised to drink gatorade/livan ravinder...increased diet as tolerated Pt has a f/u appoint at [facility] on 09/08/2018. Abdomen - PN: Normal Lungs - PN: Not Done Heart - PN: Not Done Thyroid - PN: Not Done HEENT - PN: Normal General - PN: Normal Presentation-Admit: Vertex FHR - Baseline A Provider: 130 Membranes, Provider: Intact Pool Provider: Negative IP Hx Assessment: The History has been Reviewed and is Current EGA AdmitDate IP: 38.0 IP Chief Complaint: Uterine contractions; Decreased movement NICHD Variability Prov Fetus A: Moderate 6-25bpm NICHD Accel Fetus A IP Provider: [id number] FHR Category Provider Fetus A: Category I NICHD Decel Fetus A IP Provider: None Dilatation, Provider: 1-2 Effacement, Provider: nadeem
--- NOTE | 2018-09-07 07:18 | OBDCSUM ---
Datetime: 09/06/2018 17:50 Follow up at, Provider: [facility] this thurs Discharge Diagnosis, Provider: False Labor - Undelivered Discharge Diagnosis Prov Other: Gastroenteritis
[2018-09-07 22:58] VITALS: BP 114/77; PULSE 89; RESP 20; O2SAT 98
== END 2018-09-06 17:51 | disposition home or self-care (01) ==
LOC: H.EROB2 16:14
DX: O26.93 Pregnancy related conditions, unspecified, third trimester (principal); K29.90 Gastroduodenitis, unspecified, without bleeding; O36.8130 Decreased fetal movements, third trimester, not applicable or unspecified; Z3A.38 38 weeks gestation of pregnancy